=== PATIENT | female | born 1980 | race Caucasian/White ===

== ENCOUNTER 2019-02-06 16:36 | Emergency (ER) | payer BC, MEDICAID ==
--- NOTE | 2019-02-06 16:50 | ED ---
Headache - HPI Summary HPI Summary: This patient is a 38 year old female presenting to [facility] with a chief complaint of headache since earlier today. She is 6 months and reports sinus congestion and chills. She denies cough and sore throat. She reports muscle craps in her left leg over the past month. She denies vomiting and diarrhea. - History Of Current Complaint Chief Complaint: EDHeadache Stated Complaint: HEAD HURTS AND ALWAYS COLD PER DAUGHTER Time Seen by Provider: 02/06/19 16:47 Hx Obtained From: Patient Onset/Duration: Started hours ago Character: Pressure - Allergies/Home Medications Allergies/Adverse Reactions: Allergies Allergy/AdvReac Type Severity Reaction Status Date / Time No Known Allergies Allergy Verified 02/06/19 16:45 PMH/Surg Hx/FS Hx/Imm Hx Endocrine/Hematology History: Denies: Hx Anticoagulant Therapy Cardiovascular History: Denies: Hx Hypertension GI History: Reports: Hx Gall Bladder Disease, Other GI Disorders - hx gallstones - Immunization History Date of Tetanus Vaccine: up to date per pt Infectious Disease History: No Infectious Disease History: Denies: History Other Infectious Disease, Traveled Outside the [place] in Last 30 Days - Family History Known Family History: Negative: Cardiac Disease - Social History Alcohol Use: None Substance Use Type: Reports: None Smoking Status (MU): Never Smoked Tobacco Review of Systems Positive: Nasal Discharge. Negative: Sore Throat Negative: Cough Negative: Vomiting, Diarrhea Positive: Other - Muscle cramps Positive: Headache All Other Systems Reviewed And Are Negative: Yes Physical Exam - Summary Physical Exam Summary: Constitutional: Well-developed, Well-nourished, Alert. (-) Distressed Skin: Warm, Dry HENT: Normocephalic; Atraumatic Eyes: Conjunctiva normal. No photophobia. Neck: Musculoskeletal ROM normal neck. (-) JVD, (-) Stridor, (-) Tracheal deviation. No nuchal rigidity. Cardio: Rhythm regular, rate normal, Heart sounds normal; Intact distal pulses; Radial pulses are 2+ and symmetric. (-) Murmur Pulmonary/Chest wall: Effort normal. (-) Respiratory distress, (-) Wheezes, (-) Rales. Lungs are clear Abd: Soft, (-) tenderness, (-) Distension, (-) Guarding, (-) Rebound. Gravid. Musculoskeletal: (-) Edema Lymph: (-) Cervical adenopathy Neuro: Alert, Oriented x3 Psych: Mood and affect Normal Triage Information Reviewed: Yes Vital Signs On Initial Exam: Initial Vitals Temp Pulse Resp BP Pulse Ox 98.4 F 101 16 143/80 99 02/06/19 16:40 02/06/19 16:40 02/06/19 16:40 02/06/19 16:40 02/06/19 16:40 Vital Signs Reviewed: Yes Procedures - Sedation Patient Received Moderate/Deep Sedation with Procedure: No Diagnostics - Vital Signs Vital Signs Temp Pulse Resp BP Pulse Ox 02/06/19 16:40 98.4 F 101 16 143/80 99 - Laboratory Result Diagrams: 02/06/19 17:21 02/06/19 17:21 Lab Statement: Any lab studies that have been ordered have been reviewed, and results considered in the medical decision making process. Headache Course/Dx - Course Course Of Treatment: This patient is a 38 year old female presenting to [facility] with a chief complaint of headache since earlier today. Absolute Neuts were 9.4 H. Absolute Lymphs were 0.5 L. Rapid Influenza A and B tests were negative. Plan for discharge was discussed with the patient and she was agreeable with this plan. Patient appears well, no signs of meningitis. heart rate within normal limits. Patient's symptoms possibly secondary to viral URI. Patient comfortable with discharge home. Has Ob follow-up first week of February. - Diagnoses Provider Diagnoses: Headache, Viral syndrome Discharge ED - Sign-Out/Discharge Documenting (check all that apply): Patient Departure - Discharge - Discharge Plan Condition: Stable Disposition: HOME Patient Education Materials: Acute Headache (ED), Viral Syndrome (ED) Referrals: Marline Eldridge MD [Primary Care Provider] - 2 Days Additional Instructions: Return to ED with new or worsening symptoms. - Billing Disposition and Condition Condition: STABLE Disposition: Home - Attestation Statements Document Initiated by Lucie: Yes Documenting Paulibe: Laz Hood Provider For Whom Lucie is Documenting (Include Credential): Viral Maria DO Scribe Attestation: Laz Hall scribed for Viral Maria DO on 02/06/19 at 1905. Scribe Documentation Reviewed: Yes Provider Attestation: The documentation as recorded by the Laz brown accurately reflects the service I personally performed and the decisions made by me, Viral Maria, DO Status of Scribeden Document: Viewed
[2019-02-06] MEDS ORDERED: NS 0.9% 1000 ML** 1,000 ML IV ONE (16:55)
[2019-02-06] MEDS ORDERED: Acetaminophen TAB* 325 MG PO ONE (16:55)
[2019-02-06 17:30] LABS: ABS Lymphocytes 0.5 10^3/ul (1.0-4.8); ABS Monocytes 0.3 10^3/ul (0-0.8); ABS Neutrophils 9.4 10^3/ul (1.5-7.7); Eosinophil % 0.3 %; Hematocrit 33 % (35-47); Hemoglobin 11.1 g/dL (12.0-16.0); Lymphocyte % 4.4 %; Mean Corpuscular HGB Conc 34 g/dL (31-36); Mean Corpuscular Hemoglobin 30 pg (27-31); Mean Corpuscular Volume 89 fL (80-97); Mean Platelet Volume 7.8 fL (7.4-10.4); Platelet Count 148 10^3/uL (150-450); Red Blood Count 3.72 10^6 /uL (3.70-4.87); Red Cell Distribution Width 14 % (10-15); White Blood Count 10.2 10^3/uL (3.5-10.8)
[2019-02-06 17:44] LABS: Influenza A Molecular NEGATIVE (Negative); Influenza B Molecular NEGATIVE (Negative)
[2019-02-06 17:45] LABS: Albumin 3.2 g/dL (3.2-5.2); Albumin/Globulin Ratio 1.2 (1-3); BUN/Creatinine Ratio 16.9 (8-20); Calcium 8.1 mg/dL (8.6-10.3); EGFR African American 137.3 (>60); EGFR Non-African American 113.5 (>60); Globulin 2.7 g/dL (2-4); Potassium 3.6 mmol/L (3.5-5.0); Total Bilirubin 0.3 mg/dL (0.2-1.0); Total Protein 5.9 g/dL (6.4-8.9)
[2019-02-06 18:31] VITALS: BP 109/67
== END 2019-02-06 18:31 | disposition home or self-care (01) ==
LOC: ED 16:36
DX: B34.9 Viral infection, unspecified (principal); R51 Headache
CPT/HCPCS: 36415; 80053; 85025; 96360; 99282; A9270-GY

== ENCOUNTER 2019-05-03 08:39 | Inpatient (IN) | payer OTHER ==
[2019-05-03] MEDS ORDERED: Buffered Lidocaine 1% SYRIN* 1 ML/SYRINGE INTRADERM ONE (09:32)
[2019-05-03] MEDS ORDERED: Lactated Ringers 1000 ML Bag* 1,000 ML IV ONE ×2 (09:32→16:59)
[2019-05-03] MEDS ORDERED: Oxytocin in LR* 20 UNITS/1,000 ML BAG IVPB SCH (10:00)
[2019-05-03 10:26] LABS: ABS Eosinophils 0.1 10^3/ul (0-0.6); ABS Lymphocytes 1.4 10^3/ul (1.0-4.8); ABS Monocytes 0.6 10^3/ul (0-0.8); ABS Neutrophils 7.8 10^3/ul (1.5-7.7); Eosinophil % 0.9 %; Hematocrit 35 % (35-47); Hemoglobin 11.9 g/dL (12.0-16.0); Lymphocyte % 14.4 %; Mean Corpuscular HGB Conc 34 g/dL (31-36); Mean Corpuscular Hemoglobin 30 pg (27-31); Mean Corpuscular Volume 87 fL (80-97); Mean Platelet Volume 8.7 fL (7.4-10.4); Platelet Count 157 10^3/uL (150-450); Red Blood Count 3.96 10^6 /uL (3.70-4.87); Red Cell Distribution Width 15 % (10-15)
[2019-05-03 10:46] LABS: Urine Benzodiazepine Screen None Detected (None Detect); Urine Opiates Screen None Detected (None Detect)
[2019-05-03] MEDS: Lactated Ringers 1000 ML Bag* 1,000 ML IV SCH ×2 (11:31→15:45)
--- NOTE | 2019-05-03 14:06 | HP ---
General Information - Reason for Visit Pt presents at 39+3 wks for IOL for AMA. uncomplicated otherwise. No complaints. - General Information Maternal Age: 38 Grav: 3 Para: 2 SAB: 0 IEA: 1 Estimated Due Date: 05/07/19 Determined By: LMP Gestational Age in Weeks/Days: 39+3 Maternal Blood Type and Rh: A Positive - Results this Serology/RPR Result: Non-Reactive Rubella Result: Immune HBsAg Result: Negative HIV Result: Negative GBS Culture Result: Negative Past Medical History Delivery History: See Records Pertinent Past Medical History: See Records - h/o kidney stones Pertinent Past Surgical History: See Records Past Surgical History Comment: h/o buttock I&D abscess, cholecystectomy - Antepartal Records Antepartal Records: Reviewed, Complicated by: - AMA Review of Systems Constitutional: Comfortable CV Complaint: No Respiratory: Shortness of Breath: No Gastrointestinal: No Nausea/Vomiting Genitourinary: No Dysuria, No Bleeding, No Leaking Fluid Musculoskeletal: No Complaint Neurological: No Headache Movement: Normal Exam Allergies/Adverse Reactions: Allergies No Known Allergies Allergy (Verified 02/06/19 16:45) Vital Signs 05/03/19 09:00 Temperature 98.2 F Pulse Rate 79 Respiratory 20 Rate Blood Pressure 132/85 (mmHg) O2 Sat by Pulse 99 Oximetry Lab Values - Entire Visit: Laboratory Tests 05/03/19 05/03/19 05/03/19 10:05 10:05 10:05 WBC 10.0 RBC 3.96 Hgb 11.9 L Hct 35 MCV 87 MCH 30 MCHC 34 RDW 15 Plt Count 157 MPV 8.7 Neut % (Auto) 77.9 Lymph % (Auto) 14.4 [place] % (Auto) 6.3 Eos % (Auto) 0.9 Baso % (Auto) 0.5 Absolute Neuts (auto) 7.8 H Absolute Lymphs (auto) 1.4 Absolute Monos (auto) 0.6 Absolute Eos (auto) 0.1 Absolute Basos (auto) 0.0 Absolute Nucleated RBC 0.0 Nucleated RBC % 0.0 Urine Opiates Screen None detected Ur Barbiturates Screen None detected Ur Phencyclidine Scrn None detected Ur Amphetamines Screen None detected U Benzodiazepines Scrn None detected Urine Cocaine Screen None detected U Cannabinoids Screen None detected Blood Type A Positive Antibody Screen Negative - Measurements Height: 5 ft 7.32 in Weight: 190 lb Weight in lbs: [phone] Body Mass Index (BMI): 29.5 Pre- Weight: 147 lb Weight Gained This : 43 lbs and 0 ozs - Exam Breast: Breast Exam Deferred CVA: No CVA Tenderness Heart: Normal Rhythm/Heart Sounds HEENT: No Significant Findings Lungs: Clear Bilaterally Rectal: Rectal Exam Deferred - Abdominal Exam Abdomen Exam: Fundal Height Consistent with Dates - Ultrasound/Biophysical Profile Ultrasound Status: Not Done Targeted Exam Findings Estimated Weight: 8 lbs Cervical Exam: 2cm - -3 Effacement: 60% Station: -2 Presenting Part: Vertex Membrane Status: Intact Bleeding/Discharge: None EFM Findings - External Monitor Findings Baseline Heart Rate: 130 External Monitor Findings: Accelerations Present, No Pattern of Variable or Late Decelerations, Variability Moderate, Baseline Stable Contractions: None Assessment/Plan - Assessment 39+3, AMA, here for IOL, fairly favorable cervix, multip. Plan IV pitocin, AROM when able. Pt desires epidural when appropriate. - Plan Plan: Induction, Admit - Anticipate Vaginal Delivery - Date/Time of Admission Date of Admission: 05/03/19 Time of Admission: 09:30
[2019-05-03] MEDS ORDERED: Famotidine TAB* 20 MG PO PRN (16:59)
[2019-05-03] MEDS ORDERED: Sodium Citrate/Citric Acid* 15 ML UDC PO PRN (16:59)
[2019-05-03] MEDS ORDERED: Phenylephrine 40 MCG/ML SYRINGE IV PUSH PRN (16:59)
[2019-05-03] MEDS ORDERED: EPHEDrine (Pressors)* 50 MG/ML VIAL IV PUSH PRN (16:59)
[2019-05-03] MEDS ORDERED: OBEPIDURAL* 250 ML EPIDURAL SCH ×2 (17:00→17:42)
[2019-05-03] MEDS ORDERED: Lactated Ringers 1000 ML Bag* 1,000 ML IV SCH (17:00)
[2019-05-03] MEDS ORDERED: OBEPIDURAL* 250 ML EPIDURAL ONE (17:04)
[2019-05-04] MEDS ORDERED: Witch Hazel PAD* JAR TOPICAL PRN (03:56)
[2019-05-04] MEDS ORDERED: Dibucaine 1% 28.35 GM TUBE PR PRN (03:56)
[2019-05-04] MEDS ORDERED: Acetaminophen TAB* 325 MG PO PRN (03:56)
[2019-05-04] MEDS ORDERED: Lactated Ringers 1000 ML Bag* 1,000 ML IV SCH (04:00)
[2019-05-04] MEDS ORDERED: Oxytocin in LR* 20 UNITS/1,000 ML BAG IVPB SCH (04:00)
[2019-05-04] MEDS: Ibuprofen TAB* 600 MG PO SCH ×3 (04:25→20:30)
--- NOTE | 2019-05-04 06:09 | PROCNOTE ---
[facility] OB: Delivery Note - Delivery A Date of : 05/04/19 Time of : 04:05 Sex: Female Weight at : 7 lb 5 oz Score 1 Minute: 9 Score 5 Minutes: 9 Gestational Age in Weeks and Days at Delivery: 39 Weeks and 4 Days Delivery Method: Spontaneous Vaginal Labor: Induced Did Patient attempt ?: N/A, No Previous Amniotic Fluid: Clear Estimated Blood Loss: 350 Anesthesia/Analgesia: CEI for Labor Delivered By: Jackelin Rosenbaum - Nursery Level of Nursery: Regular/Bedside - Perineum Perineal Injury: 1st Degree Perineal Repair: By Delivering Practioner - Events Delivery Events of Note: Pitocin During Labor, Supplemental O2 to Mother - Additional Delivery Notes Additional Delivery Notes: Pt admitted for IOL due to AMA, 38 yrs old. Pt received pitocin which worked well. She received an epidural and then AROM was performed. She progressed to about 5cm, but did not have cervical change for several hours. Pitocin had to be discontinued multiple times due to FHR variable decelerations. Pitocin eventually left off and pt was comfortable on knees sitting up in bed. After observation, she made good progress to 9cm and then fully dilated. She then pushed for about an hour to deliver the head in a controlled fashion. Shoulders were tight and transverse but delivered without much difficulty, and then body followed. Nuchal cord x2 reduced, and pt placed on mother's abdomen. Cord doubly clamped and cut. IV pitocin restarted. Cord blood collected. Intact placenta delivered spontaneously. Long 1st degee perineal lac repaired with 3-0 Vicryl Rapide after injecting 1% lidocaine.
[2019-05-04] MEDS: Docusate CAP* 100 MG PO SCH ×3 (07:48→20:30)
[2019-05-04] MEDS ORDERED: Simethicone TAB* 80 MG TAB.CHEW PO SCH (08:30)
[2019-05-04] MEDS ORDERED: Tetan/Diph/Pertus SYR(Tdap)* 0.5 ML SYR(BOOSTRIX) use SYR contains LATEX IM ONE (09:00)
[2019-05-04] MEDS ORDERED: Ferrous Gluconate TAB* 324 MG TAB PO SCH (09:00)
[2019-05-05] MEDS: Ibuprofen TAB* 600 MG PO SCH ×4 (03:23→15:51)
[2019-05-05 06:25] LABS: ABS Eosinophils 0.1 10^3/ul (0-0.6); ABS Lymphocytes 1.8 10^3/ul (1.0-4.8); ABS Monocytes 0.6 10^3/ul (0-0.8); ABS Neutrophils 6.1 10^3/ul (1.5-7.7); Eosinophil % 1.7 %; Hematocrit 30 % (35-47); Lymphocyte % 20.5 %; Mean Corpuscular HGB Conc 33 g/dL (31-36); Mean Corpuscular Hemoglobin 30 pg (27-31); Mean Corpuscular Volume 90 fL (80-97); Mean Platelet Volume 8.1 fL (7.4-10.4); Platelet Count 133 10^3/uL (150-450); Red Blood Count 3.36 10^6 /uL (3.70-4.87); Red Cell Distribution Width 16 % (10-15); White Blood Count 8.7 10^3/uL (3.5-10.8)
[2019-05-05] MEDS: Docusate CAP* 100 MG PO SCH ×3 (08:42→20:50)
[2019-05-06] MEDS: Ibuprofen TAB* 600 MG PO SCH ×2 (00:34→12:11)
[2019-05-06 08:29] VITALS: BP 125/80
[2019-05-06] MEDS: Docusate CAP* 100 MG PO SCH ×2 (12:12→12:18)
== END 2019-05-06 15:25 | disposition home or self-care (01) | DRG 560 ==
LOC: MCHOBOUT 08:39 → MCHOB 10:03
PROVIDERS: ADMIT Obstetrics & Gynecology; ATTEND Obstetrics & Gynecology
PROC: 10E0XZZ Delivery of Products of Conception, External Approach (ICD-10-PCS; principal; 2019-05-03)
PROC: 10907ZC Drainage of Amniotic Fluid, Therapeutic from Products of Conception, Via Natural or Artificial Opening (ICD-10-PCS; 2019-05-03)
PROC: 3E033VJ Introduction of Other Hormone into Peripheral Vein, Percutaneous Approach (ICD-10-PCS; 2019-05-03)
PROC: 4A1HXCZ Monitoring of Products of Conception, Cardiac Rate, External Approach (ICD-10-PCS; 2019-05-03)
PROC: 0HQ9XZZ Repair Perineum Skin, External Approach (ICD-10-PCS; 2019-05-03)
DX: O70.0 First degree perineal laceration during delivery (principal); Z37.0 Single live birth; O76 Abnormality in fetal heart rate and rhythm complicating labor and delivery; O69.81X0 Labor and delivery complicated by cord around neck, without compression, not applicable or unspecified; Z3A.39 39 weeks gestation of pregnancy; Z87.442 Personal history of urinary calculi
CPT/HCPCS: 36415; 80307; 85025; 86850; 86900; 86901; A9270-GY; G0480